=== PATIENT | male | born 1990 ===

== ENCOUNTER 2018-01-13 14:32 | Emergency (ER) | payer OTHER ==
[2018-01-13 14:41] VITALS: TEMP 98.4
[2018-01-13] MEDS ORDERED: Sodium Chloride 0.9% 1,000 ML IV STA (15:00)
--- NOTE | 2018-01-13 15:05 | ED PDOC ---
HPI: General Adult Time Seen by Provider: 01/13/18 14:49 Chief Complaint (Nursing): Fever Chief Complaint (Provider): Diarrhea History Per: Patient History/Exam Limitations: no limitations Onset/Duration Of Symptoms: Days (x5) Current Symptoms Are (Timing): Still Present Additional Complaint(s): 27 y/o male with a PMHx of sinusitis presenting for evaluation of diarrhea x5 days. Patient describes diarrhea as non-bloody, non-mucoid loose stools associated with body aches, fevers, and chills. Patient states he took Tylenol with mild relief of fever. He reports slightly decreased appetite, but says he is still able to eat. He also reports feeling weak and dehydrated. He denies any nausea, vomiting, respiratory symptoms, known sick contacts, or recent travel. PMD: None Past Medical History Reviewed: Historical Data, Nursing Documentation, Vital Signs Vital Signs: Last Vital Signs Temp 98.4 F 01/13/18 14:38 Pulse 86 01/13/18 16:20 Resp 16 01/13/18 14:38 BP 136/84 01/13/18 14:38 Pulse Ox 98 01/13/18 15:39 - Medical History PMH: Migraine Other PMH: Sinusitis - Surgical History Surgical History: Tonsillectomy Other surgeries: sinus surgery - Family History Family History: States: Diabetes, Hypertension - Social History Current smoker - smoking cessation education provided: No Alcohol: Social Drugs: Denies - Home Medications Home Medications: Ambulatory Orders Medication Instructions Recorded Saccharomyces Boulardi [Florastor] 500 mg PO BID #28 cap 01/13/18 - Allergies Allergies/Adverse Reactions: Allergies Allergy/AdvReac Type Severity Reaction Status Date / Time No Known Allergies Allergy Verified 01/13/18 14:38 Review of Systems ROS Statement: Except As Marked, All Systems Reviewed And Found Negative Constitutional: Positive for: Fever, Chills, Weakness Respiratory: Negative for: Cough, Shortness of Breath Gastrointestinal: Positive for: Diarrhea. Negative for: Nausea, Vomiting, Hematochezia Physical Exam - Reviewed Nursing Documentation Reviewed: Yes Vital Signs Reviewed: Yes - Physical Exam Appears: Positive for: Non-toxic, No Acute Distress Head Exam: Positive for: ATRAUMATIC, NORMOCEPHALIC Skin: Positive for: Warm, Dry ENT: Positive for: Pharynx Is (clear), Other (tacky mucous membranes). Negative for: Tonsillar Exudate Neck: Positive for: Painless ROM, Supple Cardiovascular/Chest: Positive for: Tachycardia (regular rhythm). Negative for : Murmur Respiratory: Positive for: Normal Breath Sounds. Negative for: Rales, Wheezing , Respiratory Distress Gastrointestinal/Abdominal: Positive for: Soft. Negative for: Tenderness, Mass , Distended, Guarding Back: Positive for: Normal Inspection. Negative for: Decreased ROM Extremity: Positive for: Normal ROM. Negative for: Deformity Lymphatic: Negative for: Adenopathy Neurologic/Psych: Positive for: Alert. Negative for: Motor/Sensory Deficits - Laboratory Results Result Diagrams: 01/13/18 15:20 01/13/18 15:20 - ECG O2 Sat by Pulse Oximetry: 98 (RA) Pulse Ox Interpretation: Normal Medical Decision Making Medical Decision Makin:00 Impression: Febrileness and diarrhea. Differential diagnoses include, but are not limited to enteritis, viral syndrome, dehydration, and sepsis Plan: -Patient declined IV Toradol -CMP -Creatine phosphokinase -Lact, acid plasma -Lipase -Magnesium -Phosphorus -CBC w/ differential -Dextrose 5% 1,000 mls IV -1LNS -Blood culture -Urine culture -IV insertion -Infectious mono -Urinalysis -Reevaluation 430p Labs unremarkable. Heart rate normalizing. Pt reports feeling better. DW pt findings and plan of care. Questions/concerns addresses/answered. Scribe Attestation: Documented by Guevara oJy, acting as a scribe for Zoey Guido MD. Provider Scribe Attestation: All medical record entries made by the Scribe were at my direction and personally dictated by me. I have reviewed the chart and agree that the record accurately reflects my personal performance of the history, physical exam, medical decision making, and the department course for this patient. I have also personally directed, reviewed, and agree with the discharge instructions and disposition. Disposition - Clinical Impression Clinical Impression: Fever in adult, Diarrhea, Dehydration - Disposition Referrals: [facility] [Outside] - 01/18/18 Disposition: Routine/Home Disposition Time: 16:30 Condition: IMPROVED Additional Instructions: PARVEEN SPRAGUE, thank you for letting us take care of you today. Your provider was Zoey Guido MD and you were treated for FEVER, WEAKNESS. The emergency medical care you received today was directed at your acute symptoms. If you were prescribed any medication, please fill it and take as directed. It may take several days for your symptoms to resolve. Return to the Emergency Department if your symptoms worsen, do not improve, or if you have any other problems. Please contact your doctor or call one of the physicians/clinics you have been referred to that are listed on the Patient Visit Information form that is included in your discharge packet. Bring any paperwork you were given at discharge with you along with any medications you are taking to your follow up visit. Our treatment cannot replace ongoing medical care by a primary care provider outside of the emergency department. Thank you for allowing the [facility] team to be part of your care today. If you had a blood, urine, or wound culture: It will take several days for the results, if any change in treatment is needed we will contact you. Prescriptions: Saccharomyces Boulardi [Florastor] 500 mg PO BID #28 cap Instructions: Diarrhea in Adolescents and Adults, Fever, Adult (DC), Dehydration, Adult (DC) Forms: [facility] ED School/Work Excuse
[2018-01-13 15:39] LABS: BASO % 0.2 % (0.0-2.0); HEMOGLOBIN 14.4 g/dL (12.0-18.0); LYMPH # 1.1 K/uL (1.0-4.3); LYMPH % 14.9 % (20.0-40.0); MEAN CELL VOLUME 90.2 fl (80.0-94.0); MEAN CORPUSCULAR HEMOGLOBIN 30.8 pg (27.0-31.0); MEAN CORPUSCULAR HGB CONC 34.1 g/dL (33.0-37.0); MEAN PLATELET VOLUME 9.1 fl (7.2-11.7); MONO % 13.1 % (0.0-10.0); NEUT # 5.2 K/uL (1.8-7.0); NEUT % 71.8 % (50.0-75.0); NRBC % 0.2 % (0.0-0.0); RBC 4.67 Mil/uL (4.40-5.90); RED CELL DISTRIBUTION WIDTH 13.5 % (11.5-14.5); WHITE BLOOD COUNT 7.3 K/uL (4.8-10.8)
[2018-01-13 15:48] LABS: ALB/GLOB RATIO 1.2 (1.0-2.1); ALBUMIN 4.3 g/dL (3.5-5.0); GFR AFRICAN-AMERICAN > 60; GFR NON-AFRICAN AMERICAN > 60; LIPASE 57 U/L (23-300)
[2018-01-13 15:51] LABS: ALT/SGPT 30 U/L (21-72); AST/SGOT 39 U/L (17-59); BLOOD UREA NITROGEN 14 mg/dl (9-20)
[2018-01-13 16:15] LABS: URINE AMORPHOUS SEDIMENT RARE /ul (<OCC); URINE BILIRUBIN NEGATIVE (NEGATIVE); URINE BLOOD NEGATIVE (NEGATIVE); URINE CLARITY CLEAR (Clear); URINE COLOR YELLOW (YELLOW); URINE GLUCOSE (UA) NEG (Normal); URINE LEUKOCYTE ESTERASE NEG Leu/uL (Negative); URINE PROTEIN NEGATIVE (NEGATIVE)
[2018-01-13 18:23] VITALS: BP 124/78; PULSE 89; RESP 19; O2SAT 100
== END 2018-01-13 18:20 | disposition home or self-care (01) ==
LOC: EDBD 14:32 → H.ER 14:32
DX: R50.9 Fever, unspecified (principal); E86.0 Dehydration; R19.7 Diarrhea, unspecified
CPT/HCPCS: 80053; 81003; 82550; 83605; 83690; 83735; 84100; 85025; 86308; 87040; 87086; 96360; 99283; J7030